=== PATIENT | female | born 1955 | race Two or more races ===

== ENCOUNTER 2020-10-12 08:33 | Emergency (ER) | payer MEDICAID ==
[~2020-10-12] VITALS: Ht 160 cm; Wt 71.2 kg
[2020-10-12] MEDS ORDERED: METHOCARBAMOL 500 MG TAB PO ONE (09:45)
[2020-10-12] MEDS ORDERED: KETOROLAC TROMETH 60MG/2ML VIAL IM ONE (09:45)
[2020-10-12] MEDS ORDERED: methylPREDNISolone SOD SUCC 125 MG/2 ML VL IM ONE (09:45)
[2020-10-12 10:39] VITALS: BP 132/80
== END 2020-10-12 10:46 | disposition home or self-care (01) ==
LOC: ER 08:33
DX: M54.16 Radiculopathy, lumbar region (principal)
CPT/HCPCS: 96372; 99284; J1885; J2930

== ENCOUNTER 2021-06-14 06:07 | Emergency (ER) | payer MEDICAID ==
[~2021-06-14] VITALS: Ht 160 cm; Wt 72.1 kg
[2021-06-14 07:30] VITALS: BP 118/73
== END 2021-06-14 10:54 | disposition home or self-care (01) ==
LOC: ER 06:07
DX: R22.0 Localized swelling, mass and lump, head (principal)
CPT/HCPCS: 70450

== ENCOUNTER 2023-01-30 05:27 | Emergency (ER) | payer OTHER, MEDICAID ==
[~2023-01-30] VITALS: Ht 160 cm; Wt 72.0 kg
[2023-01-30 06:24] LABS: Urine Bacteria NONE SEEN /hpf (None Seen); Urine Blood 1+ /uL (Negative); Urine Mucus FEW (None Seen); Urine WBC 2 /hpf (0 - 5)
[2023-01-30] MEDS ORDERED: ONDANSETRON ODT 4 MG TAB PO ONE (06:45)
[2023-01-30] MEDS ORDERED: MAALOX PLUS or MAALOX 30 ML PO ONE (06:45)
[2023-01-30 07:52] LABS: Basophils # (auto) 0 10 ^3/uL (0-0.2); Basophils % (auto) 0.2 % (0.0-2.0); Eosinophils # (auto) 0 10 ^3/uL (0-0.8); Eosinophils % (auto) 0.7 % (0.0-7.0); Hematocrit 45.4 % (36.0-46.0); Hemoglobin 14.9 g/dL (12.2-16.2); Lymphocytes # (auto) 1.8 10 ^3/uL (0.4-5.4); Mean Corpuscular Hemoglobin 29.4 pg (28.0-32.0); Mean Corpuscular Volume 89.1 fL (80.0-100.0); Monocytes # (auto) 0.4 10 ^3/uL (0-1.3); Monocytes % (auto) 5.8 % (0.0-12.0); Neutrophils # (auto) 4.8 10 ^3/uL (1.6-8.6); Neutrophils % (auto) 68.3 % (37.0-80.0); Nucleated Red Blood Cells % 0.1 %; Red Blood Cells 5.09 10^6/uL (4.0-5.20); Red Cell Distribution Width 13.9 % (11.8-14.3); White Blood Cell 7.1 10^3/uL (4.4-10.8)
[2023-01-30 08:02] LABS: Albumin 4.1 g/dL (3.4-5.0); Calcium 8.9 mg/dL (8.5-10.1); Potassium 4.4 mmol/L (3.5-5.1)
[2023-01-30 08:06] LABS: BUN/Creatinine Ratio 16.9 (10.0-20.0); Bilirubin, Total 0.9 mg/dL (0.2-1.0); Total Protein 7.7 g/dL (6.4-8.2)
[2023-01-30] MEDS ORDERED: DICY10CA PO (09:49)
[2023-01-30] MEDS ORDERED: ZOFR4T PO (09:49)
[2023-01-30 10:04] VITALS: BP 126/67; PULSE 67; RESP 16; TEMP 98.6; O2SAT 98
== END 2023-01-30 10:11 | disposition home or self-care (01) ==
LOC: ER 05:27
DX: R10.84 Generalized abdominal pain (principal); R10.11 Right upper quadrant pain; R19.7 Diarrhea, unspecified; Z88.0 Allergy status to penicillin
CPT/HCPCS: 36415; 71260; 74177; 80053; 81001; 83690; 84484; 85025; 93005; 99285; Q0162; Q9967

== ENCOUNTER 2023-04-02 10:33 | Emergency (ER) | payer OTHER, MEDICAID ==
[~2023-04-02] VITALS: Ht 160 cm; Wt 75.0 kg
[~2023-04-02 10:33] MED LIST: DICY10CA PO; ZOFR4T PO
[2023-04-02 13:25] VITALS: BP 107/85; PULSE 80; RESP 16; TEMP 97.3; O2SAT 97
== END 2023-04-02 13:55 | disposition home or self-care (01) ==
LOC: ER 10:33
DX: S63.502A Unspecified sprain of left wrist, initial encounter (principal); Z79.899 Other long term (current) drug therapy; Z88.0 Allergy status to penicillin; W18.39XA Other fall on same level, initial encounter; Y93.89 Activity, other specified; Y92.89 Other specified places as the place of occurrence of the external cause; Y99.8 Other external cause status
CPT/HCPCS: 73110; 73130

== ENCOUNTER 2023-04-17 10:52 | Emergency (ER) | payer OTHER, MEDICAID ==
[~2023-04-17] VITALS: Ht 160 cm; Wt 72.6 kg
[2023-04-17 11:05] VITALS: BP 135/74; PULSE 87; RESP 20; TEMP 98.2; O2SAT 96
== END 2023-04-17 15:33 | disposition home or self-care (01) ==
LOC: ER 10:52
DX: S63.502A Unspecified sprain of left wrist, initial encounter (principal); Z88.0 Allergy status to penicillin; W18.39XA Other fall on same level, initial encounter; Y93.89 Activity, other specified; Y92.89 Other specified places as the place of occurrence of the external cause; Y99.8 Other external cause status